=== PATIENT | male | born 1960 | race Caucasian/White ===

== ENCOUNTER 2024-12-18 09:35 | Day surgery (SDC) | payer MEDICARE, BC ==
[2024-12-18] MEDS: Lactated Ringers 1,000 ML IV SCH (10:12)
[2024-12-18 12:16] VITALS: BP 121/53; PULSE 55
== END 2024-12-18 12:10 | disposition home or self-care (01) ==
LOC: CC.SDS 09:35
PROVIDERS: ATTEND Family Medicine
DX: Z12.11 Encounter for screening for malignant neoplasm of colon (principal); K57.30 Diverticulosis of large intestine without perforation or abscess without bleeding; I10 Essential (primary) hypertension; E78.5 Hyperlipidemia, unspecified; E66.9 Obesity, unspecified; Z79.82 Long term (current) use of aspirin; Z68.39 Body mass index [BMI] 39.0-39.9, adult; Z79.899 Other long term (current) drug therapy; Z87.891 Personal history of nicotine dependence
CPT/HCPCS: J7120